=== PATIENT | female | born 1945 | race Caucasian/White ===

== ENCOUNTER 2018-03-04 14:08 | Emergency (ER) | payer BC ==
[~2018-03-04] VITALS: Ht 160 cm; Wt 68.0 kg
[2018-03-04 14:18] VITALS: BP 125/74
--- NOTE | 2018-03-04 14:48 | NUR ---
PATIENT PRESENTS TO ED WITH C/O PAIN DURING URINATION W/ FREQUENCY AND URGENCY;X LAST NOC; PT STATES SHE BECAME INCONTINENT.HX OF OVARIAN DENIES N/V/D/ FEVER; AAOX4 WITH EVEN AND STEADY GAIT; LUNGS CLEAR BL; HR EVEN AND REGULAR; NEEDS ATTENDED;PATIENT POSITIONED FOR COMFORT; HOB ELEVATED; BEDRAILS UP X2; BED DOWN. ER MD MADE AWARE OF PT STATUS.
--- NOTE | 2018-03-04 15:17 | NUR ---
DR JOYA AT BEDSIDE FOR PATIENT EVAL
[2018-03-04 16:04] VITALS: BP 121/71
--- NOTE | 2018-03-04 16:04 | NUR ---
Patient discharged with v/s stable. Written and verbal after care instructions given and explained. Patient alert, oriented and verbalized understanding of instructions. Ambulatory with steady gait. All questions addressed prior to discharge. ID band removed. Patient advised to follow up with PMD. Rx of CIPRO & PYRIDIUM given. Patient educated on indication of medication including possible reaction and side effects. Opportunity to ask questions provided and answered.
== END 2018-03-04 16:04 | disposition home or self-care (01) ==
LOC: MED 14:08
DX: N39.0 Urinary tract infection, site not specified (principal); Z85.43 Personal history of malignant neoplasm of ovary; Z90.49 Acquired absence of other specified parts of digestive tract
CPT/HCPCS: 81002; 99283

== ENCOUNTER 2018-08-13 14:27 | Inpatient (IN) | payer BC ==
[~2018-08-13] VITALS: Ht 160 cm; Wt 68.0 kg
[2018-08-13 14:30] VITALS: BP 142/84
--- NOTE | 2018-08-13 14:30 | NUR ---
PT BIBA BLS TO BED 2
--- NOTE | 2018-08-13 14:40 | NUR ---
72Y/F BIBA WITH C/O GEN WEAKNESS X2 DAYS, REPORTS ALWAYS FEELING TIRED, PT HAD OVARIAN CA - 6TH TREATMENT. 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 PMH---OVARIAN CA ALLERGIES---CLARITIN, IMIPRAMINE
--- NOTE | 2018-08-13 14:45 | NUR ---
BLOOD PRESSURE CUFF IS ONLY ACCESSIBLE ON THE RIGHT ARM, NO IV AND MEASSURING BP ON THE LEFT ARM DUE TO LYMPH NODES
--- NOTE | 2018-08-13 15:04 | NUR ---
PT TAKEN TO CT
[2018-08-13] MEDS ORDERED: DEXAMETHASONE 10 MG/ML VIAL IM ONE (15:05)
[2018-08-13] MEDS ORDERED: ONDANSETRON 4 MG/2 ML VIAL IVP ONE (15:10)
--- NOTE | 2018-08-13 15:21 | NUR ---
EKG BEING DONE
--- NOTE | 2018-08-13 15:38 | NUR ---
PT REFUSE MEDICATION, ZOFRAN AND DEXAMETHASONE AT THIS TIME
--- NOTE | 2018-08-13 15:38 | NUR ---
DR. GRAVES AWARE AND NOTIFIED OF PT REFUSING MEDS
--- NOTE | 2018-08-13 15:50 | NUR ---
LAB AT BED SIDE
--- NOTE | 2018-08-13 16:00 | NUR ---
PT UP IN BED EATING AT THIS TIME
[2018-08-13 16:13] LABS: BASOPHILS % (AUTO) 0.2 % (0.0-2.0); EOSINOPHILS # (AUTO) 0.1 K/uL (0-0.4); EOSINOPHILS % (AUTO) 0.9 % (0.0-4.0); HEMATOCRIT 29.3 % (36-48); HEMOGLOBIN 9.8 g/dL (12.0-16.0); LYMPHOCYTES # (AUTO) 1.5 K/uL (2.5-16.5); LYMPHOCYTES % (AUTO) 25.5 % (20.5-51.1); MEAN CORPUSCULAR HEMOGLOBIN 34 pg (27-31); MEAN CORPUSCULAR HGB CONC 34 g/dL (33-37); MEAN CORPUSCULAR VOLUME 102.8 fL (80-94); MONOCYTES # (AUTO) 0.9 K/uL (0.8-1.0); MONOCYTES % (AUTO) 15.3 % (1.7-9.3); NEUTROPHILS # (AUTO) 3.5 K/uL (1.8-7.7); NEUTROPHILS % (AUTO) 58.1 % (42.2-75.2); PLATELET COUNT (AUTO) 114 K/uL (140-450); RED BLOOD CELL COUNT(AUTO) 2.85 MIL/uL (4.20-5.40); RED CELL DISTRIBUTION WIDTH 16.4 % (11.6-13.7)
[2018-08-13 16:22] LABS: ANION GAP 9.5 (8-16); CARBON DIOXIDE 30.5 mmol/L (21-32); CHLORIDE 101 mmol/L (98-107); CREATININE 0.5 mg/dL (0.6-1.3); GLUCOSE 88 mg/dL (74-106); SODIUM SERUM 138 mmol/L (136-145); UREA NITROGEN, BLOOD 13 mg/dL (7-18)
[2018-08-13 16:31] LABS: PROTHROMBIN TIME 9.9 secs (10.8-13.4)
[2018-08-13 16:35] LABS: ASPARTATE AMINOTRANSFERASE 9 U/L (15-37); TOTAL BILIRUBIN 0.2 mg/dL (0.0-1.0)
[2018-08-13] MEDS ORDERED: KCL 20 MEQ/WATER INJ PREMIX 100 ML IV ONE ×2 (17:15→17:20)
[2018-08-13] MEDS ORDERED: MAG SULF 2000 MG/WATER PREMIX 50 ML IV ONE (17:15)
--- NOTE | 2018-08-13 17:58 | NUR ---
DTR AT BEDSIDE
--- NOTE | 2018-08-13 17:58 | NUR ---
BESSY SPEARS ACCESS THE PT CARMEN CATH ON UPPER RIGHT CHEST
[2018-08-13] MEDS ORDERED: ONDANSETRON 4 MG/2 ML VIAL IM/IVP PRN (18:05)
[2018-08-13] MEDS ORDERED: HYDROcodone/APAP 5/325 MG 1 TAB TAB PO PRN (18:05)
[2018-08-13] MEDS ORDERED: MORPHINE SULFATE 2 MG/ML SYR IVP PRN (18:05)
[2018-08-13] MEDS ORDERED: ACETAMINOPHEN 325 MG TAB PO PRN (18:05)
[2018-08-13] MEDS ORDERED: DOCUSATE SODIUM 100 MG GELCAP PO PRN (18:05)
[2018-08-13 18:13] LABS: FREE T4 (FREE THYROXINE) 1.01 ng/dL (0.76-1.46); THYROID STIMULATING HORMONE 1.62 uIU/mL (0.34-3.74)
[2018-08-13 18:35] LABS: PHOSPHORUS 3.6 mg/dL (2.5-4.9)
--- NOTE | 2018-08-13 18:55 | NUR ---
PT TAKEN TO [facility] VIA GURMIKE BY BESSY ACUÑA
--- NOTE | 2018-08-13 18:55 | NUR ---
Patient will be admitted to care of DR. HARPER. Admited to MED SURG 116-B. Will go to room 116-B MED SURG. Belongings list completed. Report to BESSY MACKEY.
--- NOTE | 2018-08-13 18:55 | NUR ---
MED SURG TO CONT MAG IVBP AND POTASSIUM IVPB
[2018-08-13 19:00] VITALS: BP 158/81
--- NOTE | 2018-08-13 19:00 | NUR ---
RECEIVED REPORT FROM CHARGE NURSE FROM ER NURSE, PT CAME IN VIA [facility]. PT WITH GENERALIZED WEAKNESS, CHAIRFAST PT A0X3. WITH MGSO4 INFUSING VIA PORTACATH ON RIGHT UPPER CHEST, PATENT AND INTACT. NO K WAS GIVEN AT ER. WILL START ON KCL PER MD ORDERS. SKIN ASSESSMENT DONE. SKIN INTACT. POC REVIEWED. PT PLACED IN LOW BED, WITH SAFETY PRECAUTION. CALL LIGHT WITHIN REACH. WILL CONTINUE TO MONITOR
[2018-08-13] MEDS: NACL 0.9% 1,000 ML IV SCH (20:29)
--- NOTE | 2018-08-13 21:47 | NUR ---
PLT LOW AT 114; APTT- NORMAL 26.7. PER DR. VASQUEZ GIVE THE HEPARIN SUBQ.
[2018-08-13] MEDS ORDERED: MAG SULF 2000 MG/WATER PREMIX 100 ML IV SCH (22:00)
--- NOTE | 2018-08-13 22:12 | NUR ---
BP IS 158/81 MMHG, KS 86, DR VASQUEZ AWARE. WILL CONTINUE TO MONITOR
[2018-08-13] MEDS ORDERED: DOCU-299 PO (22:45)
[2018-08-13] MEDS ORDERED: POTA10TE30 PO (22:45)
[2018-08-13] MEDS ORDERED: PANT40EC PO (22:45)
[2018-08-13] MEDS ORDERED: MULT-1869 PO (22:45)
[2018-08-13] MEDS ORDERED: CHOL100013 PO (22:45)
--- NOTE | 2018-08-14 01:20 | NUR ---
INFORMED THAT UNABLE TO COLLECT URINE. PT INCONTINENT, VOIDS FREELY IN DIAPER INVOLUNTARILY. SAID HE WILL PUT AN ORDER FOR STRAIGHT CATH IF STILL UNABLE TO COLLECT TONIGHT.
--- NOTE | 2018-08-14 02:49 | NUR ---
INFORMED PT THAT WE NEED TO COLLECT URINE FROM HER. PT ACKNOWLEDGED BUT DON'T WANT STRAIGHT CATH AT THIS TIME. WILL TRY LATER.
--- NOTE | 2018-08-14 03:20 | NUR ---
COLLECTED URINE, SENT TO LAB
[2018-08-14 04:00] VITALS: BP 133/61
[2018-08-14 04:28] LABS: APPEARANCE,URINE CLOUDY (CLEAR); BILIRUBIN,URINE NEGATIVE (NEGATIVE); BLOOD, URINE NEGATIVE (NEGATIVE); COLOR,URINE YELLOW (YELLOW); LEUKOCYTE ESTERASE ,URINE NEGATIVE (NEGATIVE); NITRITE, URINE NEGATIVE (NEGATIVE); PH,URINE 7.5 (5.0-9.0); UGLUCOSE NEGATIVE (NEGATIVE)
[2018-08-14] MEDS ORDERED: PANTOPRAZOLE 40 MG TABEC PO SCH (06:30)
--- NOTE | 2018-08-14 07:01 | NUR ---
WILL ENDORSE TO NEXT SHIFT FOR CONTINUITY OF CARE. PT IN STABLE CONDITION
[2018-08-14 07:09] LABS: BASOPHILS % (AUTO) 0.3 % (0.0-2.0); EOSINOPHILS % (AUTO) 0.6 % (0.0-4.0); HEMATOCRIT 26.8 % (36-48); HEMOGLOBIN 9.1 g/dL (12.0-16.0); LYMPHOCYTES # (AUTO) 1.4 K/uL (2.5-16.5); MEAN CORPUSCULAR HEMOGLOBIN 35 pg (27-31); MEAN CORPUSCULAR HGB CONC 34 g/dL (33-37); MEAN CORPUSCULAR VOLUME 103.1 fL (80-94); MONOCYTES # (AUTO) 0.8 K/uL (0.8-1.0); MONOCYTES % (AUTO) 12.6 % (1.7-9.3); NEUTROPHILS # (AUTO) 4.4 K/uL (1.8-7.7); NEUTROPHILS % (AUTO) 65.5 % (42.2-75.2); PLATELET COUNT (AUTO) 100 K/uL (140-450); RED CELL DISTRIBUTION WIDTH 16.6 % (11.6-13.7); WHITE BLOOD COUNT (AUTO) 6.7 K/uL (4.8-10.8)
[2018-08-14 07:15] LABS: ANION GAP 10.1 (8-16); CARBON DIOXIDE 27.8 mmol/L (21-32); CHLORIDE 106 mmol/L (98-107); CREATININE 0.5 mg/dL (0.6-1.3); GLUCOSE 94 mg/dL (74-106); POTASSIUM 3.9 mmol/L (3.5-5.1); SODIUM SERUM 140 mmol/L (136-145); UREA NITROGEN, BLOOD 12 mg/dL (7-18)
--- NOTE | 2018-08-14 07:20 | NUR ---
REPORT RECEIVED FROM NIGHT NURSE PT ASLEEP EASILY AROUSABLE TO A/O, ABLE TO COMMUNICATE NEEDS. DENIES PAIN, NO S/S OF ACUTE DISTRESS NOTED AT THIS TIME. CALL LIGHT AND PERSONAL ITEMS WITHIN REACH, SAFETY AND FALL PRECAUTIONS IN PLACE, WILL CONTINUE TO MONITOR.
[2018-08-14 07:23] LABS: MAGNESIUM 1.5 mg/dL (1.8-2.4); PHOSPHORUS 3.6 mg/dL (2.5-4.9)
--- NOTE | 2018-08-14 08:45 | NUR ---
PATIENT HAS BEEN SCREENED AND CATEGORIZED HIGH NUTRITION RISK. PATIENT WILL BE SEEN WITHIN 1-2 DAYS OF ADMISSION. 08/14/18-08/15/[address]
[2018-08-14] MEDS ORDERED: DOCUSATE SODIUM 100 MG GELCAP PO SCH (09:00)
[2018-08-14] MEDS ORDERED: METOPROLOL 25 MG TAB PO SCH (09:00)
[2018-08-14] MEDS ORDERED: VITAMIN D 400 IU TAB PO SCH (09:00)
[2018-08-14] MEDS ORDERED: MULTIVITAMIN/MINERALS 1 TAB PO SCH (09:00)
[2018-08-14] MEDS ORDERED: METOPROLOL SUCCINATE 50 MG TABER PO SCH (09:00)
--- NOTE | 2018-08-14 10:00 | NUR ---
DR MAN NOTIED OF CURRENT LAB RESULTS INCLUDING MAGNESIUM LEVEL, ORDERS TO BE WRITTEN
--- NOTE | 2018-08-14 10:30 | NUR ---
PT AWAKE A/O ABLE TO COMMUNICATE NEEDS NO S/S OF ACUTE DISTRESS NOTED AT THIS TIME, DENIES PAIN. CALL LIGHT AND PERSONAL ITEMS WITHIN REACH, SAFETY AND FALL PRECAUTIONS IN PLACE, WILL CONTINUE TO MONITOR.
[2018-08-14] MEDS: NACL 0.9% 1,000 ML IV SCH (10:47)
[2018-08-14] MEDS ORDERED: MAG SULF 2000 MG/WATER PREMIX 50 ML IV SCH (11:30)
--- NOTE | 2018-08-14 13:40 | NUR ---
PT AWAKE A/O ABLE TO COMMUNICATE NEEDS, STARTED ON MAGNESIUM REPLACEMENT, EDUCATED REGARDING ADMINISTRATION, PT VERBALIZED UNDERSTANDING. NO S/S OF ACUTE DISTRESS NOTED AT THIS TIME, DENIES PAIN. CALL LIGHT AND PERSONAL ITEMS WITHIN REACH, SAFETY AND FALL PRECAUTIONS IN PLACE, WILL CONTINUE TO MONITOR.
--- NOTE | 2018-08-14 14:00 | NUR ---
SPOKE W PT SERVICES REGARDING EVAL, NOTIFIED OF PENDING DC, PER PT THEY WILL SEE THE PATIENT LATER TODAY.
[2018-08-14 14:22] VITALS: BP 126/73
--- NOTE | 2018-08-14 15:30 | NUR ---
PT COMPLETED MAGNESIUM INFUSION, NO S/S ASE NOTED. CALL LIGHT AND PERSONAL ITEMS WITHIN REACH, WILL CONTINUE TO MONITOR. CALLED PT TO F/U ON EVAL
[2018-08-14 15:40] VITALS: BP 126/73
--- NOTE | 2018-08-14 16:00 | NUR ---
PT AMBULATED IN [place]INO W WALKER W PT. TOLERATED WELL, PER PT SHE HAS A WALKER AT HOME
--- NOTE | 2018-08-14 16:15 | NUR ---
PT DISCHARGED TO HOME VIA PERSONAL TRANSPORT ACCOMPANIED BY DAUGHTER W ALL PERSONAL BELONGINGS. CARMEN CATH DE-ACCESSED BY NURSE DAMARIS, DRESSING CLEAN DRY AND INTACT. PT PROVIDED WITH DC INSTRUCTION, VERBALIZED UNDERSTANDING, PER PT SHE HAS A F/U APPT W PCP 08/27 . PT AWAKE A/O, NO S/S OF ACUTE DISTRESS NOTED AT TIME OF DISCHARGE.
== END 2018-08-14 16:15 | disposition home or self-care (01) | DRG 74 ==
LOC: MED 14:27 → MTU 18:09
PROVIDERS: ADMIT General Practice; ATTEND General Practice
DX: G90.9 Disorder of the autonomic nervous system, unspecified (principal); E44.0 Moderate protein-calorie malnutrition; D68.59 Other primary thrombophilia; E83.42 Hypomagnesemia; E87.6 Hypokalemia; I10 Essential (primary) hypertension; K27.9 Peptic ulcer, site unspecified, unspecified as acute or chronic, without hemorrhage or perforation; K59.09 Other constipation; D64.81 Anemia due to antineoplastic chemotherapy; T45.1X5A Adverse effect of antineoplastic and immunosuppressive drugs, initial encounter; Z68.26 Body mass index [BMI] 26.0-26.9, adult; Z85.43 Personal history of malignant neoplasm of ovary; Z88.8 Allergy status to other drugs, medicaments and biological substances; Z90.710 Acquired absence of both cervix and uterus; Z90.49 Acquired absence of other specified parts of digestive tract; Z80.3 Family history of malignant neoplasm of breast; Z80.42 Family history of malignant neoplasm of prostate; Z80.0 Family history of malignant neoplasm of digestive organs; Y92.89 Other specified places as the place of occurrence of the external cause
CPT/HCPCS: 36415; 70450; 71045; 72125; 80048; 80053; 81003; 82150; 83036; 83690; 83735; 83880; 84100; 84439; 84443; 84479; 84484; 85025; 85610; 85730; 87081; 93005; 96365; 99285; C1758; J1100; J1644; J2405; J3475; J3480; J7030; Q0092